=== PATIENT | female | born 1945 | race Caucasian/White ===

== ENCOUNTER 2021-07-20 12:45 | Emergency (ER) | payer OTHER ==
[~2021-07-20] VITALS: Ht 160 cm; Wt 64.0 kg
[2021-07-20] MEDS ORDERED: MORPHINE SULFAT15 MG PO (16:54)
== END 2021-07-20 17:26 | disposition home or self-care (01) ==
LOC: ER 13:49
DX: S82.492A Other fracture of shaft of left fibula, initial encounter for closed fracture (principal); S09.90XA Unspecified injury of head, initial encounter; M25.552 Pain in left hip; M25.562 Pain in left knee; W01.0XXA Fall on same level from slipping, tripping and stumbling without subsequent striking against object, initial encounter; Y93.01 Activity, walking, marching and hiking; Y92.008 Other place in unspecified non-institutional (private) residence as the place of occurrence of the external cause; I10 Essential (primary) hypertension; E11.40 Type 2 diabetes mellitus with diabetic neuropathy, unspecified; E78.5 Hyperlipidemia, unspecified; I25.10 Atherosclerotic heart disease of native coronary artery without angina pectoris
CPT/HCPCS: 70450; 72125; 99283